=== PATIENT | female | born 1940 | race Caucasian/White ===

== ENCOUNTER 2019-05-06 10:16 | Emergency (ER) | payer MEDICARE, OTHER, SELFPAY ==
[2019-05-06] VITALS (8 sets, daily range): BP systolic 131–156; BP diastolic 61–76; PULSE 53–68; RESP 11–19; TEMP 36.5; O2SAT 99–100
--- NOTE | ~2019-05-06 | XR_ITS ---
EXAMINATION: XR chest 2V DATE: 05/06/2019 10:45 INDICATION: Sharp right-sided chest pain and shortness of breath TECHNIQUE: PA and lateral views of the chest were obtained. COMPARISON: Chest radiograph dated 06/08/2016 and 07/04/2012 FINDINGS: Lungs remain hyperexpanded with chronic biapical pleural-parenchymal scarring. No new airspace opacit ies, pulmonary edema, pleural effusion or pneumothorax. The cardiomediastinal silhouette is normal. C holecystectomy clips in the right upper quadrant. IMPRESSION: 1. No acute cardiopulmonary disease. Reviewed, dictated and finalized at location A. INTERPRETIVE RANGER
--- NOTE | 2019-05-06 10:30 | ECG_ITS ---
Measurements Intervals [place] Rate: 54 P: 51 MO: 179 QRS: -19 QRSD: 126 T: 10 QT: 417 QTc: 397 Interpretive Statements SINUS BRADYCARDIA INTRAVENTRICULAR CONDUCTION DELAY CANNOT RULE OUT SEPTAL INFARCT, AGE INDETERMINATE BASELINE ARTIFACT- I, II, III, AVR, AVL, AVF, V1-V6 ABNORMAL ECG Electronically Signed On 05-06-2019 12:56:36 [employer] OPERATOR by Chris Hurd D.O.
--- NOTE | 2019-05-06 10:31 | ED.CHESTPAIN ---
HPI - Chest Pain General Chief Complaint: Chest Pain Stated Complaint: CP Time Seen by Provider: 05/06/19 10:16 Source: patient and RN notes reviewed Mode of arrival: EMS Limitations: no limitations History of Present Illness HPI narrative: Pt is a 79 y/o female who presents to the ED via EMS with c/o intermittent rt sided chest pain starting around 6 AM this morning. She notes that she woke up this morning with a sharp pain in the rt side of her chest. Pt states that her pain soon resolved, but returned during her physical therapy session later this morning. She notes that her pain lasts for roughly 4 seconds at a time. Pt states that she currently takes ASA 325 mg daily, and notes that she took her normal dosage this morning. According to the nurse, the pt was given .4 mg of NTG while in route to the ED. She currently denies any nausea, vomiting, or any other symptoms. MD complaint: chest pain Onset (ago): hour(s) (4) Timing of current episode: episodic Onset: awoke with symptoms Pain location: right chest Quality: sharp Associated symptoms: other (none) Treatment prior to arrival: nitroglycerin Related Data Home Medications Medication Instructions Recorded Confirmed cholecalciferol (vitamin D3) 05/06/19 [Vitamin D3] latanoprost 05/06/19 levothyroxine 05/06/19 montelukast mg 05/06/19 montelukast mg 05/06/19 nebivolol [Bystolic] mg 05/06/19 zoledronic [id number] IV 05/06/19 [Reclast] Allergies Allergy/AdvReac Type Severity Reaction Status Date / Time [place] And Derivatives Allergy Mild CITRUS Verified 05/06/19 11:45 peanut Allergy Unknown NUTS Verified 05/06/19 11:45 Chocolate Allergy Unknown Unknown Uncoded 05/06/19 11:45 Review of Systems Review of Systems: All systems reviewed & are unremarkable except as noted in HPI and below Cardiovascular: Cardiovascular: Reports chest pain (rt sided chest pain) Gastrointestinal: Gastrointestinal: Denies nausea and Denies vomiting PMF Past Medical History Medical History Anxiety Asthma Back pain Cataracts, bilateral Depression Foot fracture GERD (gastroesophageal reflux disease) Glaucoma Heart attack History of rectal polyps HLD (hyperlipidemia) HTN (hypertension) Hypothyroidism Mitral valve prolapse Osteoporosis Panic disorder Surgical History Surgical History Hx of appendectomy Hx of cardiac catheterization with stent placement Hx of cholecystectomy Hx of hysterectomy Hx of tonsillectomy Hx of tubal ligation Social History Social History (Updated 05/06/19 @ 11:28 by Siddharth Flores) Smoking status: Never smoker Gender identity (if verbalized by the patient): Female Comments PCP is Dr. Elam. Exam Narrative: Exam Narrative: General appearance: Well-developed, well-nourished Skin: Normal color Head: Normocephalic, nontraumatic Eyes: Clear conjunctiva ENT: Oropharynx normal, ears normal, nose normal Neck: Supple, nontender Chest and respiratory: Airway patent, no respiratory distress, no accessory muscle use, severe tenderness right chest with light palpation, no rash or swelling Heart: Regular rate/rhythm Abdomen: Soft, nontender, no organomegaly, quiet bowel sounds Vascular: Normal peripheral pulses, normal capillary refill. Musculoskeletal: Normal range of motion, nontender back Neurologic: Alert and oriented ?3, PROFESSIONAL CASTER is normal as tested, no gross motor deficit Course Course Emergency Course: Improving Vital Signs Vital signs: Vital Signs Temperature 36.5 C 05/06/19 10:19 Pulse Rate 68 05/06/19 10:19 Respiratory Rate 19
[2019-05-06 10:45] LABS: Basophils Percent Auto 0.1 % (0.2-1.2); Eosinophils Absolute Auto 0.1 K/mm3 (0-0.3); Eosinophils Percent Auto 1.7 % (0-4.4); Hematocrit 41.5 % (37.0-47.0); Hemoglobin 13.3 g/dL (12.0-15.0); Immature Granulocyte Absolute 0.02 K/mm3 (0.00-0.031); Immature Granulocyte Percent A 0.2 % (0-0.5); Lymphocytes Absolute Auto 1.88 K/mm3 (0.9-3.2); Lymphocytes Percent Auto 22.6 % (18.3-44.2); Mean Corpuscular Hemoglobin 29.3 pg (26-34); Mean Corpuscular Volume 91.4 fl (80-100); Mean Platelet Volume 11.4 fl (7.4-10.4); Monocytes Absolute Auto 0.6 K/mm3 (0.1-0.6); Monocytes Percent Auto 6.6 % (2.6-8.5); Neutrophils Absolute Auto 5.7 K/mm3 (1.3-6.7); Neutrophils Percent Auto 68.8 % (45.5-73.1); Platelet Count Result 170 k/mm3 (150-375); Red Blood Count 4.54 M/mm3 (4.2-5.4); Red Cell Distribution Width 13.4 % (11.5-14.5); White Blood Count 8.3 K/mm3 (4.5-10.0)
[2019-05-06 10:55] LABS: Prothrombin Time 12.9 Seconds (11.1-14.7)
[2019-05-06 10:56] LABS: Partial Thromboplastin Time 25.7 SECONDS (22.3-36.8)
[2019-05-06 11:03] LABS: Blood Urea Nitrogen 16 mg/dL (7-17); Calcium 10.3 mg/dL (8.4-10.2); Carbon Dioxide 29 mmol/L (22-30); Chloride 98 mmol/L (98-107); Estimated Glomerular Filt Rate > 60; Glucose 89 mg/dL (65-105); Potassium 3.9 mmol/L (3.4-5.0); Sodium 136 mmol/L (137-145)
[2019-05-06 11:07] LABS: Alanine Aminotransferase 21 U/L (4-35); Albumin Level 3.9 g/dL (3.5-5.1); Alkaline Phosphatase 60 U/L (38-126); Aspartate Amino Transferase 26 U/L (14-36); Bilirubin,Total 0.9 mg/dL (0.2-1.3)
[2019-05-06 11:15] LABS: Troponin I < 0.012 ng/mL (0.000-0.034)
[2019-05-06 14:09] LABS: Troponin I < 0.012 ng/mL (0.000-0.034)
== END 2019-05-06 15:20 | disposition home or self-care (01) ==
PROVIDERS: Emergency Provider Emergency Medicine; PCP Internal Medicine
DX: M94.0 Chondrocostal junction syndrome [Tietze] (principal); J45.909 Unspecified asthma, uncomplicated; K21.9 Gastro-esophageal reflux disease without esophagitis; I25.2 Old myocardial infarction; H40.9 Unspecified glaucoma; I10 Essential (primary) hypertension; E78.5 Hyperlipidemia, unspecified; E03.9 Hypothyroidism, unspecified; M81.0 Age-related osteoporosis without current pathological fracture; I34.1 Nonrheumatic mitral (valve) prolapse; Z95.5 Presence of coronary angioplasty implant and graft
CPT/HCPCS: 36415; 71046; 80048; 80076; 84484; 85025; 85610; 85730; 93005; 99284